=== PATIENT | male | born 1930 | race Two or more races ===

== ENCOUNTER 2020-03-22 19:28 | Inpatient (IN) | payer OTHER ==
[~2020-03-22] VITALS: Ht 170.2 cm; Wt 59.0 kg
[~2020-03-22 19:28] MED LIST: AGGRENOX 25 MG1 EACH PO; ARICEPT10 MG; CARDURA1 MG PO; DIOVAN160 M1 PO; DIOVAN40 MG; NAMENDA10 MG; NAMENDA10 MG PO; OMEGA 3 FISH OI1 CAP; PAXIL20 MG; PAXIL20 MG PO; ZOCOR40 MG; ZOCOR40 MG PO
[2020-03-22] MEDS ORDERED: AVAPRO150 MG (19:44)
[2020-03-22] MEDS ORDERED: RESTORIL15 M1 (19:44)
[2020-03-22] MEDS ORDERED: ECOTRIN81 MG (19:45)
[2020-03-22] MEDS ORDERED: QUETIAPINE FUM400 M1 (19:45)
[2020-03-22] MEDS ORDERED: PRE PROTEIN1 EACH (19:45)
[2020-03-22] MEDS ORDERED: PEPCID AC20 MG (19:45)
[2020-03-27] MEDS ORDERED: AMOX-CLAV 875-1 EACH PO (10:53)
== END 2020-03-27 17:12 | disposition home or self-care (01) | DRG 178 ==
LOC: ER 19:28 → MEDJ 23:29
PROVIDERS: ADMIT Internal Medicine; ATTEND Internal Medicine
PROC: BB24ZZZ Computerized Tomography (CT Scan) of Bilateral Lungs (ICD-10-PCS; principal; 2020-03-22)
PROC: 4A033R1 Measurement of Arterial Saturation, Peripheral, Percutaneous Approach (ICD-10-PCS; 2020-03-22)
PROC: 3E0F7GC Introduction of Other Therapeutic Substance into Respiratory Tract, Via Natural or Artificial Opening (ICD-10-PCS; 2020-03-23)
DX: J69.0 Pneumonitis due to inhalation of food and vomit (principal); G45.9 Transient cerebral ischemic attack, unspecified; R09.02 Hypoxemia; R41.0 Disorientation, unspecified; I25.10 Atherosclerotic heart disease of native coronary artery without angina pectoris; I11.9 Hypertensive heart disease without heart failure; F03.90 Unspecified dementia, unspecified severity, without behavioral disturbance, psychotic disturbance, mood disturbance, and anxiety; Z74.01 Bed confinement status; C61 Malignant neoplasm of prostate; H53.8 Other visual disturbances; Z20.828 Contact with and (suspected) exposure to other viral communicable diseases

== ENCOUNTER 2020-10-19 22:15 | Inpatient (IN) | payer OTHER ==
[~2020-10-19] VITALS: Ht 152.4 cm; Wt 59.0 kg
[~2020-10-19 22:15] MED LIST changes: +AMOX-CLAV 875-1 EACH PO; +AVAPRO150 MG; +ECOTRIN81 MG; +PEPCID AC20 MG; +PRE PROTEIN1 EACH; +QUETIAPINE FUM400 M1; +RESTORIL15 M1
[2020-10-19] MEDS ORDERED: QUETIAPINE FUM100 MG (22:27)
[2020-10-19] MEDS ORDERED: MIRTAZAPINE30 M1 (22:27)
[2020-10-19] MEDS ORDERED: ALTACE5 MG (22:27)
[2020-10-19] MEDS ORDERED: LYSIPLEX PLUS178 ML PO (22:28)
[2020-10-19] MEDS ORDERED: DULCOLAX5 MG (22:28)
== END 2020-11-03 13:35 | disposition home or self-care (01) | DRG 871 ==
LOC: ER 22:15 → SURG 10-20 11:51 → MEDI 10-20 11:51 → SURG 10-21 17:38 → SURH 10-23 11:10
PROVIDERS: ADMIT Internal Medicine; ATTEND Internal Medicine
PROC: 8E0ZXY6 Isolation (ICD-10-PCS; 2020-10-21)
PROC: B24BZZZ Ultrasonography of Heart with Aorta (ICD-10-PCS; principal; 2020-10-22)
PROC: 3E0F7SF Introduction of Other Gas into Respiratory Tract, Via Natural or Artificial Opening (ICD-10-PCS; 2020-10-22)
PROC: 0DH63UZ Insertion of Feeding Device into Stomach, Percutaneous Approach (ICD-10-PCS; 2020-10-31)
DX: A41.9 Sepsis, unspecified organism (principal); J69.0 Pneumonitis due to inhalation of food and vomit; I48.20 Chronic atrial fibrillation, unspecified; E87.0 Hyperosmolality and hypernatremia; I10 Essential (primary) hypertension; I25.10 Atherosclerotic heart disease of native coronary artery without angina pectoris; Z74.01 Bed confinement status; R09.02 Hypoxemia; G30.9 Alzheimer's disease, unspecified; F02.80 Dementia in other diseases classified elsewhere, unspecified severity, without behavioral disturbance, psychotic disturbance, mood disturbance, and anxiety; E86.0 Dehydration; Z20.822 Contact with and (suspected) exposure to COVID-19; Z79.01 Long term (current) use of anticoagulants; E83.39 Other disorders of phosphorus metabolism; R13.19 Other dysphagia